=== PATIENT | male | born 1945 | race Caucasian/White ===

== ENCOUNTER 2016-01-17 07:15 | Observation (INO) | payer OTHER ==
[2016-04-16 12:30] LABS: % IMMATURE GRANULYOCYTES 0.4 % (0.0-1.1); ABSOLUTE IMMATURE GRANULOCYTES 0.02 10^3/uL (0.00-0.10); ADD DIFF? NO; ADD MORPH? NO; ADD SCAN? NO; ATYPICAL LYMPHOCYTE FLAG 0 (0-99); FRAGMENT RBC FLAG 0 (0-99); HEMATOCRIT 44.3 % (40.0-51.0); HEMOGLOBIN 15.6 g/dL (13.7-17.5); LEFT SHIFT FLG 0 (0-99); LIPEMIA HEMOLYSIS FLAG 90 (0-99); MEAN CELL HEMOGLOBIN 35.3 pg (27.9-34.1); MEAN CELL HEMOGLOBIN CONCENTR. 35.2 g/dL (32.4-36.7); MEAN CELL VOLUME 100.2 fL (81.5-99.8); MEAN PLATELET VOLUME 9.4 fL (8.7-11.7); PLATELET CLUMPS FLAG 0 (0-99); PLATELET COUNT 222 10^3/uL (150-400); RED BLOOD CELL COUNT 4.42 10^6/uL (4.40-6.38)
[2016-05-01] MEDS ORDERED: TRANEXAMIC ACID 3,000 MG in NS 50 ML IRR ONE (06:00)
[2016-05-01] MEDS ORDERED: FAMOTIDINE 20 MG TAB PO ONE (06:00)
[2016-05-01] MEDS ORDERED: CHLORHEXIDINE GLUC HIBICLENS 118 ML BTL TP ONE (06:00)
[2016-05-01] MEDS ORDERED: DEXAMETHASONE 4 MG/ML VIAL IVP ONE (06:00)
[2016-05-01] MEDS ORDERED: ACETAMINOPHEN 325 MG TAB PO ONE (06:00)
[2016-05-01] MEDS ORDERED: ROPI/epiNEPH/KETOROLAC JOINT COCKTAIL IU ONE (06:00)
[2016-05-01] MEDS ORDERED: CEFAZOLIN 2 GM/DEXTR 100 ML IV ONE (06:00)
[2016-05-01] MEDS ORDERED: DEXAMETHASONE 4 MG/ML VIAL ONE (06:02)
[2016-05-01] MEDS ORDERED: FAMOTIDINE 20 MG TAB ONE (06:02)
[2016-05-01] MEDS ORDERED: ACETAMINOPHEN 325 MG TAB ONE (06:03)
[2016-05-01] MEDS ORDERED: CEFAZOLIN 2 GM/DEXTROSE/100 ML BAG IV ONE (06:03)
[2016-05-01] MEDS ORDERED: LIDOCAINE 1% 5 ML SDV ONE (06:03)
[2016-05-01] MEDS ORDERED: LR 1,000 ML IV ONE (06:11)
[2016-05-01] MEDS ORDERED: LIDOCAINE 1% 5 ML SDV ID PRN (06:11)
[2016-05-01] MEDS ORDERED: VANCOMYCIN 1 GM VIAL IV ONE (06:30)
[2016-05-01] MEDS ORDERED: SKIN ADHESIVE (DERMABOND) 1 EACH TP ONE (06:30)
[2016-05-01] MEDS ORDERED: TRANEXAMIC ACID 3,000 MG/50 ML BAG IRR ONE (06:30)
[2016-05-01] MEDS ORDERED: MIDAZOLAM 2 MG/2 ML VIAL ONE (06:57)
[2016-05-01] MEDS ORDERED: fentaNYL 100 MCG/2 ML INJ ONE (07:02)
[2016-05-01] MEDS ORDERED: PROPOFOL/EMULSION 500 MG/50 ML BOTTLE IV ONE (07:06)
[2016-05-01] MEDS ORDERED: LIDOCAINE 2% 5 ML SDV ONE ×2 (07:07)
[2016-05-01] MEDS ORDERED: ONDANSETRON 4 MG/2 ML VIAL IVP PRN (07:30)
[2016-05-01] MEDS ORDERED: LACTULOSE 20 GM/30 ML UDCUP PO PRN (07:30)
[2016-05-01] MEDS ORDERED: POLYETHYLENE GLYCOL 3350 17 GM PKT PO PRN (07:30)
[2016-05-01] MEDS ORDERED: oxyCODONE IR 5 MG TAB PO PRN (07:30)
[2016-05-01] MEDS ORDERED: TEMAZEPAM 15 MG CAP PO PRN (07:30)
[2016-05-01] MEDS ORDERED: DIPHENOXYLATE/ATROPINE LOMOTIL 1 TAB PO PRN (07:30)
[2016-05-01] MEDS ORDERED: CYCLOBENZAPRINE 10 MG TAB PO PRN (07:30)
[2016-05-01] MEDS ORDERED: MAGNESIUM HYDROXIDE 30 ML UDCUP PO PRN (07:30)
[2016-05-01] MEDS ORDERED: ONDANSETRON DISINTEGRATING 4 MG TAB PO PRN (07:30)
[2016-05-01] MEDS ORDERED: diphenhydrAMINE 25 MG CAP PO PRN (07:30)
[2016-05-01] MEDS ORDERED: BISACODYL 10 MG SUPP PR PRN (07:30)
[2016-05-01] MEDS ORDERED: PHARMACY PAIN CONSULT 1 EA MISC PRN (07:30)
[2016-05-01] MEDS ORDERED: METOCLOPRAMIDE 10 MG/2 ML VIAL IVP PRN (07:30)
[2016-05-01] MEDS ORDERED: PROMETHAZINE HCL 25 MG SUPPR PR PRN (07:30)
[2016-05-01] MEDS ORDERED: LR 1,000 ML IV SCH (07:30)
--- NOTE | 2016-05-01 08:38 | POSTOPPROG ---
Post Op Note Date of Operation: 05/01/16 Surgeon: Jesus Barba Urologic Surgeon: leigh barba Anesthesiologist: dr. aryan page Anesthesia: Spinal, Other (Specify) (adductor canal block) Pre-op Diagnosis: left knee OA Post-op Diagnosis: same Indication: left knee pain due to OA that failed conservative measuresss Procedure: L med MPL robot assisted Findings: severe medial knee OA Inf/Abcess present in the surg proc area at time of surgery?: No EBL: 50-100
[2016-05-01] MEDS ORDERED: ROPIVACAINE HCL 150 MG/30 ML INJ ONE (08:42)
[2016-05-01] MEDS: SENNOSIDES/DOCUSATE SODIUM TAB PO SCH ×2 (12:12→20:28)
[2016-05-01] MEDS: ACETAMINOPHEN 325 MG TAB PO SCH ×3 (12:12→23:17)
[2016-05-01] MEDS: ceFAZolin 2 GM/DEXTROSE 100 ML IV SCH ×2 (13:51→22:18)
[2016-05-01] MEDS ORDERED: WARFARIN SODIUM 5 MG TAB PO SCH (16:00)
[2016-05-01] MEDS: FAMOTIDINE 20 MG TAB PO SCH (20:28)
[2016-05-01] MEDS ORDERED: FAMOTIDINE 20 MG TAB PO SCH (21:00)
[2016-05-01] MEDS ORDERED: NON-FORMULARY NEW DRUG (Ranitidine Hcl [Zantac 75] 75 MG) PO SCH (21:00)
[2016-05-02 00:42] VITALS: RESP 16
[2016-05-02] MEDS: ACETAMINOPHEN 325 MG TAB PO SCH ×2 (05:01→11:49)
[2016-05-02 05:17] LABS: HEMATOCRIT 39.8 % (40.0-51.0); HEMOGLOBIN 14.4 g/dL (13.7-17.5)
[2016-05-02 05:26] LABS: INR 1.14 (0.83-1.16); PROTIME(PATIENT) 14.5 SEC (12.0-15.0)
[2016-05-02] MEDS: FAMOTIDINE 20 MG TAB PO SCH (07:59)
[2016-05-02] MEDS: SENNOSIDES/DOCUSATE SODIUM TAB PO SCH (07:59)
[2016-05-02] MEDS ORDERED: ENOXAPARIN 40 MG/0.4 ML SYR SC SCH (09:00)
[2016-05-02 11:41] VITALS: BP 134/79; PULSE 63; TEMP 98.6; O2SAT 93
--- NOTE | 2016-05-02 18:20 | GOP ---
[f rep st] OPERATIVE REPORT DATE OF OPERATION: 05/01/2016 SURGEON: Saroj Duvall MD AIRCRAFT ELECTRICIAN: MANDY Melvin. ANESTHESIA: Spinal. PREOPERATIVE DIAGNOSIS: Left knee osteoarthritis. POSTOPERATIVE DIAGNOSIS: Left knee osteoarthritis. PROCEDURE PERFORMED: Left medial compartment partial knee replacement with computer navigation and robotic assist. FINDINGS: severe medial OA ESTIMATED BLOOD LOSS: 30 cc. INDICATIONS: This is a 70 year old male with progressive pain of the left knee unresponsive to conservative care. Risks and benefits of surgical intervention were explained in detail. DESCRIPTION OF PROCEDURE: The patient was brought to the operating room and placed on the table in supine position. Spinal anesthesia was induced without difficulty. A pneumatic tourniquet was applied about the left proximal thigh and the leg was prepped and draped in sterile fashion. Attention was turned first to the distal aspect of the left femur. At 3 cm proximal to the lateral rise of the femur, 2 percutaneous half pins were placed for fixation of the femoral array. In a similar fashion, 2 pins were placed anterolateral on the tibia for fixation of the tibial array. External land marking and registration of the hip center was performed without difficulty. After exsanguination by elevation, the tourniquet was inflated to 250 mmHg. Incision was made from the tibial tuberosity to the superior pole of the patella. Dissection was carried out through the subcutaneous tissue to the deep fascia using Bovie electrocautery for hemostasis. Medial parapatellar arthrotomy was carried out to the superior pole of the patella. The medial collateral ligament was elevated and the infrapatellar fat pad was resected. Internal femoral and tibial registration was carried out without difficulty and the femoral and tibial checkpoints were placed and verified for accuracy. Attention was turned to the femur. The foot print for the size 5 femoral component was cut with the 6 mm bur using the [employer] robotic system and verified for accuracy against the CT based plan. The hole was cut for the femoral post. In a similar fashion, the 6 mm bur was used to cut the foot print for the size 5 tibial component using the [employer] system and verified for accuracy against the CT based plan. Attention was turned to the posterior aspect of the knee and remnants of the medial meniscus were excised. The posterior capsule was injected with ropivacaine, epinephrine and Toradol. Trial reduction was carried out and there was excellent range of motion, alignment and stability using the size 5 femoral component and the size 5 tibial component, 5 x 9 mm polyethylene. All trials were then removed. The joint was thoroughly irrigated and carefully dried. One package of cement and 1 gram of vancomycin were mixed in the vacuum mixer and placed on the fixation surfaces of all components. The components were implanted and all excess cement was thoroughly removed. Implant placement was verified against the CT view plan and found to be excellent. The tourniquet was deflated and all bleeders were coagulated. The wound was thoroughly irrigated and closed using interrupted sutures of 2-0 Vicryl for the joint capsule. The subcu was closed with 3-0 Vicryl and the skin with 4-0 Monocryl. Dermabond and Steri-Strips were applied, followed by a compressive dressing. The patient was then moved from the operating room to the recovery room in good condition, having tolerated the procedure well. CASE CLASSIFICATION: Clean. /[id number]/MODL MTDD
--- NOTE | 2016-05-02 22:08 | SOAPPROG ---
SOAP Progress Note Assessment/Plan: Assessment: Wil is doing well POD 1 s/p med MPL pain well controlled on oral pain meds anemia: level expected initially postop. asymptomatic VTE ppx: recommend coumadin and lovenox daily.cont JESSE latham d/c planning: d/c to home pending release from PT Plan: 05/02/16 22:06 Subjective: Wil is doing well today, denies SOB, chest pain and Nv. Objective: Vital Signs Temp Pulse Resp BP Pulse Ox 37.0 C 63 16 134/79 H 93 05/02/16 11:40 05/02/16 11:40 05/02/16 11:40 05/02/16 11:40 05/02/16 11:40 Laboratory Results 05/02/16 04:50 05/01/16 05/02/16 05/03/16 05:59 05:59 05:59 Intake Total 2926 500 Output Total 2900 Balance 26 500 PT 14.5 SEC (12.0-15.0) 05/02/16 04:50 INR 1.14 (0.83-1.16) 05/02/16 04:50 no incision drainage noted, NVI, +pf/df ICD10 Worksheet Patient Problems: Problems Problem Status Onset Primary localized osteoarthritis of left knee Acute
== END 2016-05-02 13:42 | disposition home or self-care (01) ==
LOC: INTOOBSV 05-01 06:06 → F3N 05-01 06:06
PROVIDERS: ADMIT Orthopaedic Surgery; ATTEND Orthopaedic Surgery
PROC: 8E0Y0CZ Robotic Assisted Procedure of Lower Extremity, Open Approach (ICD-10-PCS; principal; 2016-05-01 07:15)
PROC: 0SRD0L9 Replacement of Left Knee Joint with Medial Unicondylar Synthetic Substitute, Cemented, Open Approach (ICD-10-PCS; principal; 2016-05-01 07:15)
DX: M17.12 Unilateral primary osteoarthritis, left knee (principal); I48.0 Paroxysmal atrial fibrillation
CPT/HCPCS: 27446; 73560; 97110; 97116; 97161; 97165; C1713; C1776; G8978; G8979; G8980; G8987; G8988; G8989; J0171; J0690; J1100; J1650; J1885; J2250; J2704; J2795; J3010; J3370

== ENCOUNTER → 2016-04-18 | Outpatient (CLI) | payer OTHER | LOC: FIMAGING 08:18 | PROVIDERS: ATTEND Orthopaedic Surgery | DX: M17.12 Unilateral primary osteoarthritis, left knee (principal) ==

== ENCOUNTER → 2016-12-24 | Outpatient (CLI) | payer OTHER | LOC: BHLMT 15:30 | PROVIDERS: ATTEND Internal Medicine Cardiovascular Disease | DX: R06.09 Other forms of dyspnea (principal); I48.0 Paroxysmal atrial fibrillation ==